=== PATIENT | male | born 1950 | race Caucasian/White ===

== ENCOUNTER → 2021-04-18 | Outpatient (CLI) | payer MEDICARE | LOC: CT 13:23 | DX: R63.4 Abnormal weight loss (principal); K82.0 Obstruction of gallbladder | CPT/HCPCS: 36415; 82565; 84520; Q9967 ==

== ENCOUNTER → 2021-04-26 | Outpatient (CLI) | payer MEDICARE | LOC: KOH-I 08:12 | DX: R63.4 Abnormal weight loss (principal); K82.8 Other specified diseases of gallbladder | CPT/HCPCS: 76705 ==

== ENCOUNTER 2021-05-06 17:58 | Inpatient (IN) | payer MEDICARE ==
[~2021-05-06] VITALS: Ht 172.7 cm; Wt 90.7 kg
[2021-05-06 19:34] LABS: RED BLOOD COUNT 3.22 M/UL (4.20-5.50); WHITE BLOOD COUNT 4.7 K/UL (4.5-11.0)
[2021-05-07 07:23] LABS: HEMOGLOBIN 7.5 gm/dl (14.0-17.5); RED BLOOD COUNT 2.89 M/UL (4.20-5.50); WHITE BLOOD COUNT 9.5 K/UL (4.5-11.0)
[2021-05-07 07:24] LABS: BUN/CREATININE RATIO 14 (0-10)
[2021-05-07] MEDS ORDERED: POTASSIUM CHLO10 ME1 PO (12:08)
[2021-05-07] MEDS ORDERED: MOXIFLOXACIN H400 MG PO (12:08)
[2021-05-07] MEDS ORDERED: ESCITALOPRAM OXA5 MG PO (12:08)
[2021-05-07] MEDS ORDERED: DIFLUCAN200 MG PO (12:09)
[2021-05-07] MEDS ORDERED: LACTULOSE10 GM/15 M PO (12:09)
[2021-05-07] MEDS ORDERED: ONDANSETRON HCL4 MG PO (12:10)
[2021-05-07] MEDS ORDERED: JANUVIA100 MG PO (12:10)
[2021-05-07] MEDS ORDERED: [UNRECOGNIZED DRUG - OTHER] PO (12:10)
[2021-05-07] MEDS ORDERED: MONTELUKAST SOD10 MG PO (12:11)
[2021-05-08 07:11] LABS: BUN/CREATININE RATIO 23 (0-10)
[2021-05-08 09:01] LABS: HEMOGLOBIN 7.9 gm/dl (14.0-17.5)
[2021-05-08 09:10] LABS: RED BLOOD COUNT 3.21 M/UL (4.20-5.50); WHITE BLOOD COUNT 12.5 K/UL (4.5-11.0)
[2021-05-08] MEDS ORDERED: AUGMENTIN 500-500 MG PO (12:49)
[2021-05-08] MEDS ORDERED: DECADRON6 MG PO (12:52)
== END 2021-05-08 16:40 | disposition home or self-care (01) | DRG 177 ==
LOC: ER1 17:58 → CDU 22:30 → MED SURG 4 05-07 09:49
PROVIDERS: Internal Medicine; Physician Assistant; ADMIT Internal Medicine
PROC: 3E0433Z Introduction of Anti-inflammatory into Central Vein, Percutaneous Approach (ICD-10-PCS; 2021-05-06)
PROC: 8E0ZXY6 Isolation (ICD-10-PCS; principal; 2021-05-07)
PROC: XW033E5 Introduction of Remdesivir Anti-infective into Peripheral Vein, Percutaneous Approach, New Technology Group 5 (ICD-10-PCS; 2021-05-07)
DX: U07.1 COVID-19 (principal); J12.82 Pneumonia due to coronavirus disease 2019; J96.01 Acute respiratory failure with hypoxia; E44.0 Moderate protein-calorie malnutrition; G93.40 Encephalopathy, unspecified; E11.22 Type 2 diabetes mellitus with diabetic chronic kidney disease; E11.21 Type 2 diabetes mellitus with diabetic nephropathy; I13.10 Hypertensive heart and chronic kidney disease without heart failure, with stage 1 through stage 4 chronic kidney disease, or unspecified chronic kidney disease; E87.6 Hypokalemia; D63.1 Anemia in chronic kidney disease; N18.30 Chronic kidney disease, stage 3 unspecified; Z79.4 Long term (current) use of insulin; Z83.3 Family history of diabetes mellitus; Z82.49 Family history of ischemic heart disease and other diseases of the circulatory system; Z68.30 Body mass index [BMI] 30.0-30.9, adult
CPT/HCPCS: 0240U; 36415; 36600; 51701; 70450; 71045; 80053; 80076; 81001; 82550; 82553; 82607; 82728; 82746; 82803; 83036; 83540; 83550; 83605; 83615; 83690; 83735; 83880; 84100; 84439; 84443; 84484; 84550; 85025; 85379; 85384; 85610; 85652; 86140; 87040; 93005; 96365; 96375; 99285; C9113; G0378; J0248; J0456; J0696; J1100; J3475; J3480; J7030

== ENCOUNTER 2021-05-18 14:47 | Emergency (ER) | payer MEDICARE ==
[~2021-05-18 14:47] MED LIST: AUGMENTIN 500-500 MG PO; DECADRON6 MG PO; DIFLUCAN200 MG PO; ESCITALOPRAM OXA5 MG PO; JANUVIA100 MG PO; LACTULOSE10 GM/15 M PO; MONTELUKAST SOD10 MG PO; MOXIFLOXACIN H400 MG PO; ONDANSETRON HCL4 MG PO; POTASSIUM CHLO10 ME1 PO; [UNRECOGNIZED DRUG - OTHER] PO
[2021-05-18 16:41] LABS: HEMOGLOBIN 8.5 gm/dl (14.0-17.5); RED BLOOD COUNT 3.26 M/UL (4.20-5.50); WHITE BLOOD COUNT 6.4 K/UL (4.5-11.0)
== END 2021-05-19 | disposition short-term general hospital (02) ==
LOC: ER1 14:47
PROVIDERS: Physician Assistant
DX: A41.9 Sepsis, unspecified organism (principal); D64.9 Anemia, unspecified; H05.019 Cellulitis of unspecified orbit; E11.9 Type 2 diabetes mellitus without complications; I10 Essential (primary) hypertension; Z20.822 Contact with and (suspected) exposure to COVID-19
CPT/HCPCS: 80053; 83605; 85025; 87040; 93005; 96365; 96366; 99284; J3370; U0002